=== PATIENT | female | born 1945 | race Caucasian/White ===

== ENCOUNTER 2017-08-13 00:18 | Inpatient (IN) | payer MEDICARE ==
[2017-08-13 01:33] LABS: Bacteria,Urine 1+ /HPF (Negative); Bilirubin,Urine NEG (Negative); Blood,Urine SM (Negative); Color,Urine Yellow (Yellow); Mucus,Urine FEW /HPF; Nitrite,Urine NEG (Negative); Protein,Urine <15 mg/dL mg/dL (Negative)
[2017-08-13 01:38] LABS: Basophils % (Auto) 0.4 % (0.0-1.8); Eosinophils # (Auto) 0.2 K/mm3 (0.0-0.4); Eosinophils % (Auto) 2.1 % (0.0-4.3); Hematocrit 39.9 % (30.3-42.9); Hemoglobin 12.4 gm/dl (10.1-14.3); Lymphocytes # (Auto) 0.4 K/mm3 (1.2-5.4); Lymphocytes % (Auto) 5.1 % (13.4-35.0); Mean Corpuscular HGB Conc 31 % (30-34); Mean Corpuscular Volume 75 fl (79-97); Monocytes # (Auto) 0.7 K/mm3 (0.0-0.8); Monocytes % (Auto) 9.1 % (0.0-7.3); Platelet Count 230 K/mm3 (140-440); Red Blood Count 5.31 M/mm3 (3.65-5.03); Red Cell Distribution Width 16.3 % (13.2-15.2)
[2017-08-13 01:39] LABS: Mean Corpuscular Hemoglobin 23 pg (28-32)
[2017-08-13] MEDS ORDERED: NACL 0.9% 1000 ML 1,000 ML ONE (01:42)
[2017-08-13] MEDS ORDERED: TORADOL IV ONE (01:47)
[2017-08-13] MEDS ORDERED: ZOFRAN IV ONE (01:47)
[2017-08-13] MEDS ORDERED: MORPHINE IV ONE (01:47)
[2017-08-13 01:48] LABS: BUN/Creatinine Ratio 23; Blood Urea Nitrogen 14 mg/dL (7-17); Calcium 8.4 mg/dL (8.4-10.2); Hemolysis Index 4
[2017-08-13] MEDS ORDERED: NACL 0.9% 1000 ML 1,000 ML IV ONE ×2 (01:48→08:04)
--- NOTE | 2017-08-13 02:08 | Emergency Department Report ---
ED N/V/D HPI - General Chief complaint: Nausea/Vomiting/Diarrhea Stated complaint: ABDOMINAL PAIN,N/V/D Time Seen by Provider: 08/13/17 01:35 Source: patient Mode of arrival: Ambulatory Limitations: No Limitations - History of Present Illness MD complaint: nausea, vomiting (2 episodes), diarrhea (2 episodes), abdominal pain -: Sudden Description of Vomiting: food contents Associated Abdominal Pain: Yes Location: LLQ Radiation: none Severity: severe Quality: cramping, aching, constant Consistency: constant Improves with: none Worsens with: movement, other (PALPATION) Associated Symptoms: nausea/vomiting. denies: fever/chills - Related Data Home Medications Medication Instructions Recorded Confirmed Last Taken Lantus 35 units SQ HS 08/13/17 08/13/17 Unknown Victoza 2-Tremaine 0.12 units SQ DAILY 08/13/17 08/13/17 Unknown Allergies Allergy/AdvReac Type Severity Reaction Status Date / Time meperidine [From Demerol] AdvReac Dizziness Verified 08/13/17 00:36 ED Review of Systems ROS: Stated complaint: ABDOMINAL PAIN,N/V/D Other details as noted in HPI ED Past Medical Hx - Past Medical History Previous Medical History?: Yes Hx Diabetes: Yes - Surgical History Past Surgical History?: No - Social History Smoking Status: Never Smoker Substance Use Type: None - Medications Home Medications: Home Medications Medication Instructions Recorded Confirmed Last Taken Type Lantus 35 units SQ HS 08/13/17 08/13/17 Unknown History Victoza 2-Tremaine 0.12 units SQ DAILY 08/13/17 08/13/17 Unknown History ED Physical Exam - General Limitations: No Limitations General appearance: alert, in distress (SECONDARY TO ABDOMINAL PAIN) - Head Head exam: Present: atraumatic, normocephalic - Eye Eye exam: Present: normal appearance, EOMI - ENT ENT exam: Present: normal exam, mucous membranes moist - Neck Neck exam: Present: normal inspection, full ROM - Respiratory Respiratory exam: Present: normal lung sounds bilaterally. Absent: respiratory distress - Cardiovascular Cardiovascular Exam: Present: normal rhythm, tachycardia - GI/Abdominal GI/Abdominal exam: Present: soft, tenderness (LEFT LOWER QUADRANT) - Rectal Rectal exam: Present: deferred - Extremities Exam Extremities exam: Present: normal inspection, full ROM - Back Exam Back exam: Present: normal inspection, full ROM - Neurological Exam Neurological exam: Present: alert, oriented X3 - Psychiatric Psychiatric exam: Present: normal affect, normal mood - Skin Skin exam: Present: warm, dry, intact, normal color ED Course Vital Signs 08/13/17 08/13/17 08/13/17 00:26 01:34 01:35 Temperature 98.8 F Pulse Rate 133 H 123 H 125 H Respiratory 18 20 23 Rate Blood Pressure 151/84 147/69 O2 Sat by Pulse 100 Oximetry 08/13/17 08/13/17 08/13/17 01:41 01:45 01:51 Temperature Pulse Rate 124 H 123 H 125 H Respiratory 12 16 17 Rate Blood Pressure 147/69 147/69 147/69 O2 Sat by Pulse Oximetry 08/13/17 08/13/17 08/13/17 01:55 01:56 02:00 Temperature Pulse Rate 126 H 124 H Respiratory 19 16 14 Rate Blood Pressure 147/69 121/61 O2 Sat by Pulse Oximetry 08/13/17 08/13/17 08/13/17 02:05 02:11 02:15 Temperature Pulse Rate 122 H 121 H 121 H Respiratory 15 19 19 Rate Blood Pressure 121/61 121/61 121/61 O2 Sat by Pulse Oximetry 08/13/17 02:20 Temperature Pulse Rate Respiratory 16 Rate Blood Pressure O2 Sat by Pulse Oximetry - Reevaluation(s) Reevaluation #1: 08/13/17 05:24 PT IS STILL TACHYCARDIA AND I AM STILL WAITING ON CTA OF [place] CT OF ABDOMEN/ PELVIS. PT WAS SLEEPING WHEN I WENT IN. 08/13/17 05:24 ED Medical Decision Making - Lab Data Result diagrams: 08/13/17 00:56 08/13/17 00:56 - EKG Data EKG shows normal: sinus rhythm, axis, QRS complexes, ST-T waves Rate: tachycardia - Radiology Data Radiology results: report reviewed (CTA CHEST;NEGATIVE CT ABD/PELVIS: DIVERTICULOSIS,DISTENDED GALLBLADDER WITH MILD PERICHOLECYSTIC EDEMA, NO GALL STONES) Critical care attestation.: If time is entered above; I have spent that time in minutes in the direct care of this critically ill patient, excluding procedure time. ED Disposition Clinical Impression: Cholecystitis, Hyperglycemia due to type 2 diabetes mellitus Diverticulitis large intestine Qualifiers: Diverticulitis bleeding: without bleeding Diverticulitis complication: without perforation or abscess Qualified Code(s): K57.32 - Diverticulitis of large intestine without perforation or abscess without bleeding Abdominal pain Qualifiers: Abdominal location: left lower quadrant Qualified Code(s): R10.32 - Left lower quadrant pain Disposition: OP ADMIT IP TO THIS HOSP Is pt being admited?: Yes Does the pt Need Aspirin: No Instructions: Diabetes Mellitus Type 2 in Adults (ED) Referrals: VASYL CHENG MD [Primary Care Provider] - 3-5 Days Time of Disposition: 08:09 (DR BRODY PAGED AND CASE REVIEWED ANDHE WILL ADMIT THE PT TO THE HOSPITAL)
[2017-08-13 02:40] LABS: Alanine Aminotransferase 11 units/L (7-56); Albumin 2.9 g/dL (3.9-5)
[2017-08-13 02:43] LABS: Bilirubin,Direct < 0.2 mg/dL (0-0.2)
[2017-08-13] MEDS ORDERED: NACL ONE (04:54)
--- NOTE | 2017-08-13 06:43 | Cat Scan Report ---
FINAL REPORT EXAM: CT ANGIO CHEST HISTORY: chest pain,abd pain,sob,recent travel TECHNIQUE: CT imaging obtained through the chest in pulmonary angiographic phase following intravenous administration of contrast. Transaxial, Coronal and sagittal reformats with maximal intensity projections are provided. PRIORS: None. FINDINGS: Normal caliber main pulmonary artery. No central or segmental pulmonary embolism. Opacification of the pulmonary arterial tree is insufficient for more detailed evaluation of pulmonary embolism. No pericardial effusion. Mild cardiomegaly. Thoracic aorta is normal in course and caliber. No periaortic fluid or stranding. No pneumothorax, effusion or focal airspace disease. Bibasilar atelectasis/scarring. The central airways are patent. No bronchiectasis. Please see CT abdomen and pelvis of the same date. The superficial soft tissues are unremarkable. No acute bony abnormality or worrisome osseous lesions identified. IMPRESSION: No central or segmental pulmonary embolism or other acute finding. Please see CT abdomen and pelvis of the same date.
--- NOTE | 2017-08-13 06:50 | Cat Scan Report ---
FINAL REPORT EXAM: CT ABDOMEN PELVIS W CON HISTORY: chest pain,abd pain,sob,recent travel TECHNIQUE: CT images are acquired through the Abdomen and Pelvis arterial and delayed phases following intravenous administration of contrast. Transaxial, coronal and sagittal reformations are provided. PRIORS: None FINDINGS: Please see CT chest of the same date. Gallbladder is distended. No calcified cholelithiasis. Mild pericholecystic edema. The liver, pancreas, spleen, and adrenal glands are unremarkable. Kidneys show no worrisome lesions, hydronephrosis, or calculi. Urinary bladder is unremarkable. Small and large bowel are normal in caliber. Sigmoid diverticulosis without surrounding inflammatory findings. Appendix is normal. No free air, free fluid, or lymphadenopathy identified. Aorta is normal in course and caliber. Superficial soft tissues are unremarkable. No acute or aggressive appearing skeletal findings. IMPRESSION: Distended gallbladder with mild pericholecystic edema may be due to cholecystitis in the proper clinical setting. No calcified gallstones are present. Consider follow-up ultrasound as warranted.
[2017-08-13] MEDS ORDERED: D50W (25GM) Syringe IV PRN (08:28)
[2017-08-13] MEDS ORDERED: NACL 0.9% 1000 ML 1,000 ML IV SCH (09:00)
[2017-08-13] MEDS ORDERED: FLAGYL 500 MG/100 ML 500 MG/100 ML BAG IV SCH (09:00)
--- NOTE | 2017-08-13 09:06 | Ultrasound Report ---
FINAL REPORT EXAM: US ABDOMEN LIMITED HISTORY: ABDOMINAL PAIN COMPARISONS: CT abdomen and pelvis 08/13/2017 FINDINGS: Grayscale and color Doppler ultrasound evaluation of the right upper abdomen Liver is normal in size and contour. Hepatic parenchymal echogenicity is within normal limits. No parenchymal lesion identified. No intra or extrahepatic biliary ductal dilatation. The common duct measures approximately 6 millimeters in caliber. The gallbladder is full of echogenic shadowing gallstones. Mild suggested pericholecystic edema. Gallbladder wall thickness is approximately 3 millimeters. The pancreas is not well seen secondary to overlying bowel gas. Imaged portion of the abdominal aorta and inferior vena cava are unremarkable. No abdominal ascites or free fluid in Espinoza's pouch. The right kidney measures up to 9.2 cm in length and is without hydronephrosis or echogenic shadowing foci to suggest nephrolithiasis. IMPRESSION: Cholelithiasis with mild gallbladder wall thickening and suggested pericholecystic edema are consistent with acute cholecystitis. If patient's clinical picture is equivocal, consider nuclear medicine hepatobiliary scan for more specific evaluation.
[2017-08-13 09:19] LABS: Bilirubin,Urine NEG (Negative); Blood,Urine SM (Negative); Color,Urine Straw (Yellow); Mucus,Urine FEW /HPF; Nitrite,Urine NEG (Negative); Protein,Urine <15 mg/dL mg/dL (Negative); Urobilinogen,Urine < 2.0 mg/dL (<2.0)
[2017-08-13] MEDS ORDERED: FLUSH HEPARIN IV ONE (10:31)
[2017-08-13] MEDS ORDERED: HEPARIN ONE (10:31)
[2017-08-13] MEDS: NOVOLOG SUB-Q SCH ×3 (11:00→17:11)
[2017-08-13] MEDS ORDERED: NOVOLOG SUB-Q ONE ×2 (11:19→13:34)
[2017-08-13] MEDS: ZOSYN/NS 4.5GM/100ML 4.5 GM/100 ML VIAL IV SCH ×3 (11:46→22:23)
[2017-08-13] MEDS: MORPHINE IV PRN ×2 (11:47→22:31)
--- NOTE | 2017-08-13 13:09 | History and Physical Report ---
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 She had diarrhea earlier. She is scheduled to go back to [place] 08/16/2017. Past medical history: As HPI Past surgical history: Denies Social history: Nonsmoker, no alcohol abuse or illegal drug use Family history: Diabetes ROS:Constitutional: no weight loss, no weight gain, no chills, no sweats, no fatigue, positive weakness, no poor appetite Ears, nose, mouth and throat: no deferred, no ear pain, no decreased hearing, no sinus pressure, no bleeding gums, no dental pain, no mouth pain, no hoarseness, no sore throat, no swelling in mouth, no post-nasal drip, no headache, no vertigo, no pain front of neck, no neck lump Cardiovascular: chest pain, lightheadedness, decreased exercise tolerance, no orthopnea, no palpitations, no rapid/irregular heart beat, no edema, no syncope , no shortness of breath, no dyspnea on exertion, no paroxysmal nocturnal dyspnea, no claudication, no phlebitis, no high blood pressure, no leg edema Respiratory: no cough with sputum, no excessive sputum, no hemoptysis, no pleurisy, no pain, no pain on inspiration, no respiratory infections, no other Gastrointestinal: As HPI Genitourinary Male: no flank pain, no discharge, no urinary hesitancy, no nocturia Rectal: no incontinence, no bleeding, no itching, no discharge Musculoskeletal: no neck stiffness, no shooting arm pain, no arm numbness/ tingling, no shooting leg pain, no leg numbness/tingling, no atrophy, no limitation of motion, no fractures, no loss of height, no prior amputations, no arthritis Integumentary: no depigmentation, no dryness, no unusual bruising Neurological: Headache Psychiatric: hypersomnia, change in libido, irritability, no anxiety, no memory loss, no sleep disturbances, no change in appetite, no disorientation, no hallucinations, no paranoia, no hopelessness, no anxiety attacks, no confusion Endocrine: Patient is diabetic Hematologic/Lymphatic: no easy bruising, no lymphedema Allergic/Immunologic: no urticaria, no allergic rhinitis, no anaphylaxis Medications and Allergies Allergies Allergy/AdvReac Type Severity Reaction Status Date / Time meperidine [From Demerol] AdvReac Dizziness Verified 08/13/17 00:36 Home Medications Medication Instructions Recorded Confirmed Last Taken Type Lantus 35 units SQ HS 08/13/17 08/13/17 Unknown History Victoza 2-Tremaine 0.12 units SQ DAILY 08/13/17 08/13/17 Unknown History Active Meds: Active Medications Dextrose (D50w (25gm) Syringe) 50 ml IV PRN PRN PRN Reason: Hypoglycemia Heparin Sodium (Porcine) (Heparin) 5,000 unit SUB-Q Q12HR SADIQ Metronidazole (Flagyl 500 Mg/100 Ml) 500 mg in 100 mls @ 200 mls/hr IV ONCE SADIQ Last Admin: 08/13/17 11:58 Dose: 200 mls/hr Piperacillin Sod/Tazobactam Sod (Zosyn/Ns 4.5gm/100ml) 4.5 gm in 100 mls @ 200 mls/hr IV Q8HR SADIQ PRN Reason: Protocol Last Admin: 08/13/17 11:46 Dose: 200 mls/hr Sodium Chloride (Nacl 0.9% 1000 Ml) 1,000 mls @ 100 mls/hr IV DIRECT SADIQ Insulin Aspart (Novolog) 0 units SUB-Q Q6HR SADIQ PRN Reason: Protocol Last Admin: 08/13/17 11:00 Dose: 6 units Morphine Sulfate (Morphine) 2 mg IV Q4H PRN PRN Reason: Pain , Severe (7-10) Last Admin: 08/13/17 11:47 Dose: 2 mg Ondansetron HCl (Zofran) 4 mg IV Q4H PRN PRN Reason: Nausea And Vomiting Exam - Physical Exam Narrative exam: GEN: WDWN, NAD, AWAKE, ALERT, ORIENTATED 3 HEENT: NCAT, EOMI, PERRL, OP Clear NECK: supple, no adenopathy, no thyromegaly, no JVD CVS/HEART: RRR, NORMAL S1S2, NO JVD, pulses present bilaterally CHEST/LUNGS: CTA B, Symmetrical chest expansion, good air entry bilaterally GI/Abdomen: soft, positive Calvillo's sign, nondistended, left lower quadrant epigastric tenderness good bowel sounds, no guarding or rebound /Bladder: no suprapubic tenderness, no CVA or paraspinal tenderness EXT/Skin: no c/c/e, no obvious rash MSK: FROM x 4 Neuro: CN 2-12 grossly intact, no new focal deficits Psych: calm - Constitutional Vitals: Temp Pulse Resp BP Pulse Ox 98.3 F 85 16 115/70 100 08/13/17 11:43 08/13/17 11:43 08/13/17 02:20 08/13/17 11:43 08/13/17 00:26 Results - Labs CBC & Chem 7: 08/13/17 00:56 08/13/17 00:56 Labs: Abnormal lab results 08/13/17 08/13/17 08/13/17 Range/Units 00:37 00:56 00:56 RBC 5.31 H (3.65-5.03) M/mm3 MCV 75 L (79-97) fl MCH 23 L (28-32) pg RDW 16.3 H (13.2-15.2) % Lymph % (Auto) 5.1 L (13.4-35.0) % [place] % (Auto) 9.1 H (0.0-7.3) % Lymph # 0.4 L (1.2-5.4) K/mm3 Seg Neutrophils % 83.3 H (40.0-70.0) % D-Dimer (0-234) ng/mlDDU Sodium 136 L (137-145) mmol/L Creatinine 0.6 L (0.7-1.2) mg/dL Glucose 327 H (65-100) mg/dL POC Glucose 285 H (70-105) Albumin (3.9-5) g/dL Urine WBC (Auto) (0.0-6.0) /HPF 08/13/17 08/13/17 08/13/17 Range/Units 01:16 02:08 02:08 RBC (3.65-5.03) M/mm3 MCV (79-97) fl MCH (28-32) pg RDW (13.2-15.2) % Lymph % (Auto) (13.4-35.0) % [place] % (Auto) (0.0-7.3) % Lymph # (1.2-5.4) K/mm3 Seg Neutrophils % (40.0-70.0) % D-Dimer 279.13 H (0-234) ng/mlDDU Sodium (137-145) mmol/L Creatinine (0.7-1.2) mg/dL Glucose (65-100) mg/dL POC Glucose (70-105) Albumin 2.9 L (3.9-5) g/dL Urine WBC (Auto) 68.0 H (0.0-6.0) /HPF Assessment and Plan Patient is a 72-year-old [place] speaking woman visiting from [place] with a history of type 2 diabetes mellitus on insulin (Victoza and Lantus 35 units at bedtime) who presents with acute onset of severe constant nonradiating LLQ abd pains around 9pm last night associated with n/v without aggravating or relieving factors. She had diarrhea earlier. She is scheduled to go back to [place] 08/16/2017. CT abdomen and pelvis with IV contrast reported distended gallbladder with mild pericholecystic edema may be due to cholecystitis, no calcified gallbladder present CTA of the chest reported as no acute findings negative for PE Abdominal ultrasound reported as cholelithiasis with mild gallbladder wall thickening and suggested pericholecystic edema are consistent with acute cholecystitis, if patient's clinical picture is equivocal, consider nuclear medicine hepatobiliary scan for more specific evaluation -Acute cholecystitis with cholelithiasis: Treat with IV Zosyn, risk/nothing by mouth, IV pain medicine, IV fluids -Sepsis due to above as evident in the emergency physician's documentation of heart rate 125, respirations 23: Ordered blood cultures, IV fluids, antibiotics -Acute cystitis without hematuria: Check urine culture and treat with antibiotics -unControlled type 2 diabetes mellitus on insulin: Sliding scale every 6 hours because she is nothing by mouth -DVT prophylaxis: Subcutaneous heparin
[2017-08-13] MEDS ORDERED: ZOFRAN ONE (14:09)
[2017-08-13] MEDS: ZOFRAN IV PRN (15:22)
[2017-08-14] MEDS ORDERED: TYLENOL PO PRN (00:47)
[2017-08-14] MEDS: NOVOLOG SUB-Q SCH ×4 (00:54→20:12)
[2017-08-14] MEDS: ZOSYN/NS 4.5GM/100ML 4.5 GM/100 ML VIAL IV SCH ×2 (05:56→15:27)
[2017-08-14] MEDS: ZOFRAN IV PRN (08:31)
[2017-08-14] MEDS: HEPARIN SUB-Q SCH ×2 (09:28→22:16)
--- NOTE | 2017-08-14 10:10 | Progress Note ---
Assessment and Plan Assessment and plan: Patient is a 72-year-old Persian speaking woman visiting from [place] with a history of type 2 diabetes mellitus on insulin (Victoza and Lantus 35 units at bedtime) who presents with acute onset of severe constant nonradiating LLQ abd pains around 9pm last night associated with n/v without aggravating or relieving factors. She had diarrhea earlier. She is scheduled to go back to [place] 08/16/2017. CT abdomen and pelvis with IV contrast reported distended gallbladder with mild pericholecystic edema may be due to cholecystitis, no calcified gallbladder present CTA of the chest reported as no acute findings negative for PE Abdominal ultrasound reported as cholelithiasis with mild gallbladder wall thickening and suggested pericholecystic edema are consistent with acute cholecystitis, if patient's clinical picture is equivocal, consider nuclear medicine hepatobiliary scan for more specific evaluation -Acute cholecystitis with cholelithiasis: Treat with IV Zosyn, risk/nothing by mouth, IV pain medicine, IV fluids -Sepsis due to above as evident in the emergency physician's documentation of heart rate 125, respirations 23: Ordered blood cultures, IV fluids, antibiotics -Acute cystitis without hematuria: Check urine culture and treat with antibiotics -unControlled type 2 diabetes mellitus on insulin: Sliding scale every 6 hours because she is nothing by mouth -DVT prophylaxis: Subcutaneous heparin 08/14/17: Consulted and d/w Surgery Dr. 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 Follow-up on current diagnosis. Overnight uneventful. Patient denies any chest pain, shortness breath, severe headaches. Imaging, nursing note, chart, labs and old chart reviewed. Discussed with patient. Still with abd pain, nausea, coughing up yellow hernan phlegm. Hospitalist Physical - Physical exam Narrative exam: GEN: WDWN, NAD, AWAKE, ALERT, ORIENTATED 3 HEENT: NCAT, EOMI, PERRL, OP Clear NECK: supple, no adenopathy, no thyromegaly, no JVD CVS/HEART: RRR, NORMAL S1S2, NO JVD, pulses present bilaterally CHEST/LUNGS: CTA B, Symmetrical chest expansion, good air entry bilaterally GI/Abdomen: soft, positive Calvillo's sign, nondistended, left lower quadrant epigastric tenderness good bowel sounds, no guarding or rebound /Bladder: no suprapubic tenderness, no CVA or paraspinal tenderness EXT/Skin: no c/c/e, no obvious rash MSK: FROM x 4 Neuro: CN 2-12 grossly intact, no new focal deficits Psych: calm - Constitutional Vitals: Temp Pulse Resp BP Pulse Ox 98.1 F 91 H 18 114/58 94 08/14/17 08:03 08/14/17 08:03 08/14/17 08:03 08/14/17 08:03 08/14/17 08:03 Results - Labs CBC & Chem 7: 08/13/17 00:56 08/13/17 00:56 Labs: Laboratory Last Values WBC 7.4 K/mm3 (4.5-11.0) 08/13/17 00:56 RBC 5.31 M/mm3 (3.65-5.03) H 08/13/17 00:56 Hgb 12.4 gm/dl (10.1-14.3) 08/13/17 00:56 Hct 39.9 % (30.3-42.9) 08/13/17 00:56 MCV 75 fl (79-97) L 08/13/17 00:56 MCH 23 pg (28-32) L 08/13/17 00:56 MCHC 31 % (30-34) 08/13/17 00:56 RDW 16.3 % (13.2-15.2) H 08/13/17 00:56 Plt Count 230 K/mm3 (140-440) 08/13/17 00:56 Lymph % (Auto) 5.1 % (13.4-35.0) L 08/13/17 00:56 [place] % (Auto) 9.1 % (0.0-7.3) H 08/13/17 00:56 Eos % (Auto) 2.1 % (0.0-4.3) 08/13/17 00:56 Baso % (Auto) 0.4 % (0.0-1.8) 08/13/17 00:56 Lymph # 0.4 K/mm3 (1.2-5.4) L 08/13/17 00:56 [place] # 0.7 K/mm3 (0.0-0.8) 08/13/17 00:56 Eos # 0.2 K/mm3 (0.0-0.4) 08/13/17 00:56 Baso # 0.0 K/mm3 (0.0-0.1) 08/13/17 00:56 Seg Neutrophils % 83.3 % (40.0-70.0) H 08/13/17 00:56 Seg Neutrophils # 6.2 K/mm3 (1.8-7.7) 08/13/17 00:56 D-Dimer 279.13 ng/mlDDU (0-234) H 08/13/17 02:08 VBG pH 7.390 (7.320-7.420) 08/13/17 00:56 Sodium 136 mmol/L (137-145) L 08/13/17 00:56 Potassium 4.2 mmol/L (3.6-5.0) 08/13/17 00:56 Chloride 99.4 mmol/L (98-107) 08/13/17 00:56 Carbon Dioxide 24 mmol/L (22-30) 08/13/17 00:56 Anion Gap 17 mmol/L 08/13/17 00:56 BUN 14 mg/dL (7-17) 08/13/17 00:56 Creatinine 0.6 mg/dL (0.7-1.2) L 08/13/17 00:56 Estimated GFR > 60 ml/min 08/13/17 00:56 BUN/Creatinine Ratio 23 % 08/13/17 00:56 Glucose 327 mg/dL (65-100) H 08/13/17 00:56 POC Glucose 125 (70-105) H 08/14/17 06:51 Calcium 8.4 mg/dL (8.4-10.2) 08/13/17 00:56 Total Bilirubin 0.40 mg/dL (0.1-1.2) 08/13/17 02:08 Direct Bilirubin < 0.2 mg/dL (0-0.2) 08/13/17 02:08 Indirect Bilirubin 0.2 mg/dL 08/13/17 02:08 AST 14 units/L (5-40) 08/13/17 02:08 ALT 11 units/L (7-56) 08/13/17 02:08 Alkaline Phosphatase 83 units/L (35-129) 08/13/17 02:08 Total Protein 6.6 g/dL (6.3-8.2) 08/13/17 02:08 Albumin 2.9 g/dL (3.9-5) L 08/13/17 02:08 Albumin/Globulin Ratio 0.8 % 08/13/17 02:08 Urine Color Straw (Yellow) 08/13/17 08:57 Urine Turbidity Clear (Clear) 08/13/17 08:57 Urine pH 6.0 (5.0-7.0) 08/13/17 08:57 Ur Specific [place] 1.021 (1.003-1.030) 08/13/17 01:16 Urine Protein <15 mg/dl mg/dL (Negative) 08/13/17 08:57 Urine Glucose (UA) >=500 mg/dL (Negative) 08/13/17 08:57 Urine Ketones Neg mg/dL (Negative) 08/13/17 08:57 Urine Blood Sm (Negative) 08/13/17 08:57 Urine Nitrite Neg (Negative) 08/13/17 08:57 Urine Bilirubin Neg (Negative) 08/13/17 08:57 Urine Urobilinogen < 2.0 mg/dL (<2.0) 08/13/17 08:57 Ur Leukocyte Esterase Sm (Negative) 08/13/17 08:57 Urine WBC (Auto) 3.0 /HPF (0.0-6.0) 08/13/17 08:57 Urine RBC (Auto) 3.0 /HPF (0.0-6.0) 08/13/17 08:57 U Epithel Cells (Auto) 1.0 /HPF (0-13.0) 08/13/17 08:57 Urine Bacteria (Auto) 1+ /HPF (Negative) 08/13/17 01:16 Urine Mucus Few /HPF 08/13/17 08:57
[2017-08-14] MEDS: MORPHINE IV PRN ×3 (10:22→19:25)
--- NOTE | 2017-08-14 12:34 | Consultation ---
History of Present Illness Consult date: 08/14/17 Chief complaint: Abdominal pain, nausea, vomiting, diarrhea - History of present illness History of present illness: 72-year-old female with past medical history of diabetes, hepatitis C presents to the hospital one day ago with complaints of epigastric to right upper quadrant abdominal pain, severe, ongoing for 1 day. This is associated with nonbloody, nonbilious emesis, nausea, diarrhea. She also admits to subjective fevers and chills. The patient recently came here from [place] to visit her [id number] and supposed to be returning in 2 days. She denies any prior history of abdominal pain or symptoms like this. She denies any sick contacts. No chest pain, shortness of breath. Past History Past Medical History: diabetes, hepatitis Past Surgical History: , hysterectomy, total knee replacement Social history: . denies: smoking, alcohol abuse, prescription drug abuse, IV drug use Family history: no significant family history Medications and Allergies Allergies Allergy/AdvReac Type Severity Reaction Status Date / Time meperidine [From Demerol] AdvReac Dizziness Verified 08/13/17 00:36 Home Medications Medication Instructions Recorded Confirmed Last Taken Type Lantus 35 units SQ HS 08/13/17 08/13/17 Unknown History Victoza 2-Tremaine 0.12 units SQ DAILY 08/13/17 08/13/17 Unknown History Active Meds: Active Medications Acetaminophen (Tylenol) 650 mg PO Q4H PRN PRN Reason: Pain, Mild (1-3) Last Admin: 08/14/17 00:54 Dose: 650 mg Dextrose (D50w (25gm) Syringe) 50 ml IV PRN PRN PRN Reason: Hypoglycemia Heparin Sodium (Porcine) (Heparin) 5,000 unit SUB-Q Q12HR SADIQ Last Admin: 08/14/17 09:28 Dose: 5,000 unit Metronidazole (Flagyl 500 Mg/100 Ml) 500 mg in 100 mls @ 200 mls/hr IV ONCE SADIQ Last Admin: 08/13/17 11:58 Dose: 200 mls/hr Piperacillin Sod/Tazobactam Sod (Zosyn/Ns 4.5gm/100ml) 4.5 gm in 100 mls @ 200 mls/hr IV Q8HR SADIQ PRN Reason: Protocol Last Admin: 08/14/17 05:56 Dose: 200 mls/hr Sodium Chloride (Nacl 0.9% 1000 Ml) 1,000 mls @ 100 mls/hr IV DIRECT SADIQ Last Admin: 08/14/17 05:55 Dose: 100 mls/hr Insulin Aspart (Novolog) 0 units SUB-Q Q6HR SADIQ PRN Reason: Protocol Last Admin: 08/14/17 06:54 Dose: Not Given Morphine Sulfate (Morphine) 2 mg IV Q4H PRN PRN Reason: Pain , Severe (7-10) Last Admin: 08/14/17 10:22 Dose: 2 mg Ondansetron HCl (Zofran) 4 mg IV Q4H PRN PRN Reason: Nausea And Vomiting Last Admin: 08/14/17 08:31 Dose: 4 mg Review of Systems All systems: negative (see hpi) Exam Vital Signs Temp Pulse Resp BP Pulse Ox 98.8 F 133 H 18 151/84 100 08/13/17 00:26 08/13/17 00:26 08/13/17 00:26 08/13/17 00:26 08/13/17 00:26 Narrative exam: General: Awake, alert, oriented 3. No apparent distress CV: S1, S2 present Resp: No audible wheezes Abdomen: Soft, nondistended, positive tenderness to palpation in the right upper quadrant. No rebound, rigidity, guarding. There is a well-healed lower midline abdominal scar Extremities: No clubbing, cyanosis, edema Results - Labs 08/13/17 00:56 08/13/17 00:56 Abnormal lab results 08/13/17 08/13/17 08/14/17 Range/Units 10:54 13:33 00:21 POC Glucose 284 H 232 H 210 H (70-105) 08/14/17 08/14/17 Range/Units 06:51 12:16 POC Glucose 125 H 233 H (70-105) - Imaging CT scan - abdomen: report reviewed, image reviewed CT scan - pelvis: report reviewed, image reviewed US - abdomen: report reviewed, image reviewed Assessment and Plan 72-year-old female with acute cholecystitis 1. Nothing by mouth 2. IV fluids 3. Pain and nausea control when necessary 4. IV antibiotics- on Zosyn 5. DVT prophylaxis 6. OR today for laparoscopic cholecystectomy, possible open. All risks and benefits of surgery were discussed with the patient and her family at the bedside, all questions were answered, consent was signed and placed on the chart.
[2017-08-14] MEDS ORDERED: DIPRIVAN 10 MG/ML IV ONE (14:20)
[2017-08-14] MEDS ORDERED: XYLOCAINE MPF 2% ONE (14:20)
[2017-08-14] MEDS ORDERED: SUBLIMAZE ONE (14:20)
[2017-08-14] MEDS ORDERED: ZEMURON IV ONE (14:20)
--- NOTE | 2017-08-14 14:36 | Anesthesia Consultation ---
Anesthesia Consult and Med Hx Date of service: 08/14/17 - Airway Anesthetic Teeth Evaluation: Good ROM Head & Neck: Adequate Mental/Hyoid Distance: Adequate Mallampati Class: Class I Intubation Access Assessment: Good - Pulmonary Exam CTA: Yes - Cardiac Exam Cardiac Exam: RRR - Pre-Operative Health Status ASA Pre-Surgery Classification: ASA2 Proposed Anesthetic Plan: General - Pulmonary Hx Smoking: No Hx Asthma: No COPD: No Hx Pneumonia: No - Cardiovascular System Hx Hypertension: No - Gastrointestinal Hx Gastroesophageal Reflux Disease: Yes - Endocrine Hx End Stage Renal Disease: No Hx Non-Insulin Dependent Diabetes: Yes - Additional Comments Anesthesia Medical History Comments: Hx of Post-Op Shivering
--- NOTE | 2017-08-14 14:37 | Anesthesia Day of Surgery ---
Anesthesia Day of Surgery - Day of Surgery Patient Examined: Yes Patient H&P Reviewed: Yes Patient is NPO: Yes
[2017-08-14] MEDS ORDERED: PEPCID IV NR (15:00)
[2017-08-14] MEDS ORDERED: VERSED IV SCH (15:00)
[2017-08-14] MEDS: NACL 0.9% 1000 ML 1,000 ML IV SCH (15:13)
[2017-08-14] MEDS ORDERED: MARCAINE 0.25% INFILTRATI ONE ×2 (17:23→17:25)
[2017-08-14] MEDS ORDERED: NEO SYNEPHRINE/NS Syringe(OR USE) IV ONE (17:24)
[2017-08-14] MEDS ORDERED: ROBINUL ONE (17:27)
[2017-08-14] MEDS ORDERED: NEOSTIGMINE ONE (17:27)
[2017-08-14] MEDS ORDERED: ZOFRAN ONE (17:30)
[2017-08-14] MEDS ORDERED: TORADOL ONE (17:52)
--- NOTE | 2017-08-14 18:29 | Operative Report ---
Operative Report Operative Report: Date of operation: 08/14/2017 preoperative Diagnosis: Acute cholecystitis Postoperative diagnosis: Acute cholecystitis Procedure performed: Laparoscopic cholecystectomy Surgeon:Brigid Lewis DO Anesthesia: Gen. endotracheal anesthesia Findings: Thickened gallbladder full of multiple large stones Specimen: Gallbladder Estimated blood loss: 5 mL Complications: None Disposition: Stable to PACU HPI an indication: Patient is a 72-year-old female visiting from [place] who had one day of right upper quadrant abdominal pain, nausea, vomiting, diarrhea. Her diarrhea resolved however her abdominal pain persisted. She was found to have gallbladder thickening and pericholecystic edema on CT of the abdomen and pelvis and this was confirmed on a right upper quadrant ultrasound which just showed cholelithiasis, and findings consistent with acute cholecystitis. IN benefits of a laparoscopic, possible open cholecystectomy were discussed with the patient and her family. Consent was signed and placed on chart. Procedure in detail: Patient was identified in the preoperative area, taken back to the operating room and placed on the operating table in supine position. After anesthesia was induced the abdomen was prepped and draped in usual sterile fashion and a timeout performed. Local anesthetic, 0.25 percent Marcaine was injected at all skin incision sites. A 5 mm supraumbilical incision was made using an 11 blade through which a Veress needle was placed. The Veress needle positioning was confirmed using the saline drop test and the abdomen was then insufflated to 15 mmHg. The Veress needle was then removed and a 5 mm Optiview trocar was placed through this incision. The abdomen was inspected and there was no underlying injury to any of the abdominal structures. The gallbladder was visualized and an additional 12 mm subxiphoid, and 2-5 mm right upper quadrant ports were placed all under direct visualization. The patient was placed in reverse Trendelenburg and tilted to the left and the gallbladder was grasped and lifted cephalad and above the liver. There were adhesions from the duodenum to the gallbladder which were taken down bluntly and very carefully. The gallbladder wall did appear thickened. The cystic duct and artery were then meticulously dissected using [place] dissector. The cystic plate was cleared of all peritoneum and tissue. The critical view was obtained and the cystic duct and artery were the only 2 structures entering the gallbladder. These were then clipped with 3 clips proximal on each structure and one distal. The cystic duct and artery were then transected between the clips. The gallbladder was taken off the liver bed using hook electrocautery and then placed into an Endo Catch bag. The gallbladder was removed from the abdomen via the 12 mm port and passed off the table as a specimen. The gallbladder fossa was then inspected and irrigated and there was no evidence of bleeding or bile leakage. The clips were identified and intact. The patient was laid back into neutral position and Morison's pouch was irrigated and the iirrigant returned clear. All ports were then removed under direct visualization and the abdomen desufflated. The 12 mm port fascia was closed using figure of 8, 0 Vicryl sutures. The skin incisions were all closed with 4-0 Monocryl subcuticular stitches and skin glue. The end of the case, all sponge, instrument, and sharp counts were correct 2. The patient was awoken from anesthesia, extubated and taken to PACU in stable condition.
[2017-08-14] MEDS: PERCOCET 5/325 PO PRN (22:16)
[2017-08-15] MEDS: NOVOLOG SUB-Q SCH ×3 (00:12→13:15)
[2017-08-15] MEDS: NACL 0.9% 1000 ML 1,000 ML IV SCH (03:48)
[2017-08-15] MEDS: HEPARIN SUB-Q SCH (11:27)
--- NOTE | 2017-08-15 11:35 | Progress Note ---
Assessment and Plan Assessment and plan: Patient is a 72-year-old Amharic speaking woman visiting from [place] with a history of type 2 diabetes mellitus on insulin (Victoza and Lantus 35 units at bedtime) who presents with acute onset of severe constant nonradiating LLQ abd pains around 9pm last night associated with n/v without aggravating or relieving factors. She had diarrhea earlier. She is scheduled to go back to [place] 08/16/2017. CT abdomen and pelvis with IV contrast reported distended gallbladder with mild pericholecystic edema may be due to cholecystitis, no calcified gallbladder present CTA of the chest reported as no acute findings negative for PE Abdominal ultrasound reported as cholelithiasis with mild gallbladder wall thickening and suggested pericholecystic edema are consistent with acute cholecystitis, if patient's clinical picture is equivocal, consider nuclear medicine hepatobiliary scan for more specific evaluation -Acute cholecystitis with cholelithiasis: Treat with IV Zosyn, risk/nothing by mouth, IV pain medicine, IV fluids -Sepsis due to above as evident in the emergency physician's documentation of heart rate 125, respirations 23: Ordered blood cultures, IV fluids, antibiotics -Acute cystitis without hematuria: Check urine culture and treat with antibiotics -unControlled type 2 diabetes mellitus on insulin: Sliding scale every 6 hours because she is nothing by mouth -DVT prophylaxis: Subcutaneous heparin 08/14/17: Consulted and d/w Surgery Dr. Lewis==>Date of operation: 08/14/2017 preoperative Diagnosis: Acute cholecystitis Postoperative diagnosis: Acute cholecystitis Procedure performed: Laparoscopic cholecystectomy Surgeon:Brigid Lewis, Anesthesia: Gen. endotracheal anesthesia Findings: Thickened gallbladder full of multiple large stones Specimen: Gallbladder Estimated blood loss: 5 mL Complications: None Disposition: Stable to PACU 08/15/2017: Doing well post-op, diet per Surgeon, ordered am labs. History Interval history: Daughter, Sandeep used as scanning tech Patient was seen and examined. Follow-up on current diagnosis. Overnight uneventful. Patient denies any chest pain, shortness breath, severe headaches. Imaging, nursing note, chart, labs and old chart reviewed. Discussed with patient. Still with abd pain, nausea, coughing up yellow hernan phlegm. Hospitalist Physical - Physical exam Narrative exam: GEN: WDWN, NAD, AWAKE, ALERT, ORIENTATED 3 HEENT: NCAT, EOMI, PERRL, OP Clear NECK: supple, no adenopathy, no thyromegaly, no JVD CVS/HEART: RRR, NORMAL S1S2, NO JVD, pulses present bilaterally CHEST/LUNGS: CTA B, Symmetrical chest expansion, good air entry bilaterally GI/Abdomen: soft, positive bowel sounds, no guarding or rebound /Bladder: no suprapubic tenderness, no CVA or paraspinal tenderness EXT/Skin: no c/c/e, no obvious rash MSK: FROM x 4 Neuro: CN 2-12 grossly intact, no new focal deficits Psych: calm - Constitutional Vitals: Temp Pulse Resp BP Pulse Ox 98.7 F 71 20 140/73 97 08/15/17 08:10 08/15/17 08:10 08/15/17 08:10 08/15/17 08:10 08/15/17 08:10 Results - Labs CBC & Chem 7: 08/13/17 00:56 08/13/17 00:56 Labs: Laboratory Last Values WBC 7.4 K/mm3 (4.5-11.0) 08/13/17 00:56 RBC 5.31 M/mm3 (3.65-5.03) H 08/13/17 00:56 Hgb 12.4 gm/dl (10.1-14.3) 08/13/17 00:56 Hct 39.9 % (30.3-42.9) 08/13/17 00:56 MCV 75 fl (79-97) L 08/13/17 00:56 MCH 23 pg (28-32) L 08/13/17 00:56 MCHC 31 % (30-34) 08/13/17 00:56 RDW 16.3 % (13.2-15.2) H 08/13/17 00:56 Plt Count 230 K/mm3 (140-440) 08/13/17 00:56 Lymph % (Auto) 5.1 % (13.4-35.0) L 08/13/17 00:56 [place] % (Auto) 9.1 % (0.0-7.3) H 08/13/17 00:56 Eos % (Auto) 2.1 % (0.0-4.3) 08/13/17 00:56 Baso % (Auto) 0.4 % (0.0-1.8) 08/13/17 00:56 Lymph # 0.4 K/mm3 (1.2-5.4) L 08/13/17 00:56 [place] # 0.7 K/mm3 (0.0-0.8) 08/13/17 00:56 Eos # 0.2 K/mm3 (0.0-0.4) 08/13/17 00:56 Baso # 0.0 K/mm3 (0.0-0.1) 08/13/17 00:56 Seg Neutrophils % 83.3 % (40.0-70.0) H 08/13/17 00:56 Seg Neutrophils # 6.2 K/mm3 (1.8-7.7) 08/13/17 00:56 D-Dimer 279.13 ng/mlDDU (0-234) H 08/13/17 02:08 VBG pH 7.390 (7.320-7.420) 08/13/17 00:56 Sodium 136 mmol/L (137-145) L 08/13/17 00:56 Potassium 4.2 mmol/L (3.6-5.0) 08/13/17 00:56 Chloride 99.4 mmol/L (98-107) 08/13/17 00:56 Carbon Dioxide 24 mmol/L (22-30) 08/13/17 00:56 Anion Gap 17 mmol/L 08/13/17 00:56 BUN 14 mg/dL (7-17) 08/13/17 00:56 Creatinine 0.6 mg/dL (0.7-1.2) L 08/13/17 00:56 Estimated GFR > 60 ml/min 08/13/17 00:56 BUN/Creatinine Ratio 23 % 08/13/17 00:56 Glucose 327 mg/dL (65-100) H 08/13/17 00:56 POC Glucose 177 (70-105) H 08/15/17 06:04 Calcium 8.4 mg/dL (8.4-10.2) 08/13/17 00:56 Total Bilirubin 0.40 mg/dL (0.1-1.2) 08/13/17 02:08 Direct Bilirubin < 0.2 mg/dL (0-0.2) 08/13/17 02:08 Indirect Bilirubin 0.2 mg/dL 08/13/17 02:08 AST 14 units/L (5-40) 08/13/17 02:08 ALT 11 units/L (7-56) 08/13/17 02:08 Alkaline Phosphatase 83 units/L (35-129) 08/13/17 02:08 Total Protein 6.6 g/dL (6.3-8.2) 08/13/17 02:08 Albumin 2.9 g/dL (3.9-5) L 08/13/17 02:08 Albumin/Globulin Ratio 0.8 % 08/13/17 02:08 Urine Color Straw (Yellow) 08/13/17 08:57 Urine Turbidity Clear (Clear) 08/13/17 08:57 Urine pH 6.0 (5.0-7.0) 08/13/17 08:57 Ur Specific [place] 1.021 (1.003-1.030) 08/13/17 01:16 Urine Protein <15 mg/dl mg/dL (Negative) 08/13/17 08:57 Urine Glucose (UA) >=500 mg/dL (Negative) 08/13/17 08:57 Urine Ketones Neg mg/dL (Negative) 08/13/17 08:57 Urine Blood Sm (Negative) 08/13/17 08:57 Urine Nitrite Neg (Negative) 08/13/17 08:57 Urine Bilirubin Neg (Negative) 08/13/17 08:57 Urine Urobilinogen < 2.0 mg/dL (<2.0) 08/13/17 08:57 Ur Leukocyte Esterase Sm (Negative) 08/13/17 08:57 Urine WBC (Auto) 3.0 /HPF (0.0-6.0) 08/13/17 08:57 Urine RBC (Auto) 3.0 /HPF (0.0-6.0) 08/13/17 08:57 U Epithel Cells (Auto) 1.0 /HPF (0-13.0) 08/13/17 08:57 Urine Bacteria (Auto) 1+ /HPF (Negative) 08/13/17 01:16 Urine Mucus Few /HPF 08/13/17 08:57
--- NOTE | 2017-08-15 12:06 | Progress Note ---
Assessment and Plan 72-year-old female with acute cholecystitis s/p laparoscopic cholecystectomy, POD 1 1. adv to carb controlled diet 2. dc IVF 3. dc abx 4. PO pain control 5. OOB/ambulate 6. no traveling for one week 7. d/w patient and her daughter 8. ok to id home after lunch, follow up in office prior to returning to [place] D/W Dr. Varela Subjective Date of service: 08/15/17 Narrative: Pt seen and examined. No complaints. No n/v, abd pain, diarrhea. Tolerated clear liquids. Objective Vital Signs - 12hr 08/15/17 08/15/17 03:53 08:10 Temperature 99.0 F 98.7 F Pulse Rate 81 71 Respiratory 16 20 Rate Blood Pressure 134/74 140/73 O2 Sat by Pulse 94 97 Oximetry - General physical appearance Narrative Exam: Gen: AAOx3. NAD CV: S1, S2+ Resp: No audible wheezes Abd: soft, NT, ND. incisions c/d/i Ext: no c/c/e - Labs 08/13/17 00:56 08/13/17 00:56
--- NOTE | 2017-08-15 12:09 | Discharge Summary ---
Providers - Providers Date of Admission: 08/13/17 08:20 Date of discharge: 08/15/17 Attending physician: TERESSA PHIPPS 08/14/17 09:18 Consult to Physician [CONS] Routine Consulting Provider: FIDENCIO VILLAGOMEZ Reason For Exam: acute cholecystitis Place consult to:: DR. VILLAGOMEZ Notified:: DR. VILLAGOMEZ Primary care physician: VASYL CHENG Hospitalization Condition: Stable Hospital course: Patient is a 72-year-old Estonian speaking woman visiting from [place] with a history of type 2 diabetes mellitus on insulin (Victoza and Lantus 35 units at bedtime) who presents with acute onset of severe constant nonradiating LLQ abd pains around 9pm last night associated with n/v without aggravating or relieving factors. She had diarrhea earlier. She is scheduled to go back to [place] 08/16/2017. CT abdomen and pelvis with IV contrast reported distended gallbladder with mild pericholecystic edema may be due to cholecystitis, no calcified gallbladder present CTA of the chest reported as no acute findings negative for PE Abdominal ultrasound reported as cholelithiasis with mild gallbladder wall thickening and suggested pericholecystic edema are consistent with acute cholecystitis, if patient's clinical picture is equivocal, consider nuclear medicine hepatobiliary scan for more specific evaluation -Acute cholecystitis with cholelithiasis: Treat with IV Zosyn, risk/nothing by mouth, IV pain medicine, IV fluids -Sepsis due to above as evident in the emergency physician's documentation of heart rate 125, respirations 23: Ordered blood cultures, IV fluids, antibiotics -Acute cystitis without hematuria: Check urine culture and treat with antibiotics -unControlled type 2 diabetes mellitus on insulin: Sliding scale every 6 hours because she is nothing by mouth -DVT prophylaxis: Subcutaneous heparin 08/14/17: Consulted and d/w Surgery Dr. Villagomez==>Date of operation: 08/14/2017 preoperative Diagnosis: Acute cholecystitis Postoperative diagnosis: Acute cholecystitis Procedure performed: Laparoscopic cholecystectomy Surgeon:Brigid Villagomez, Anesthesia: Gen. endotracheal anesthesia Findings: Thickened gallbladder full of multiple large stones Specimen: Gallbladder Estimated blood loss: 5 mL Complications: None Disposition: Stable to PACU 08/15/2017: Doing well post-op, diet per Surgeon, ordered am labs. per Dr. Villagomez: "72-year-old female with acute cholecystitis s/p laparoscopic cholecystectomy, POD 1 1. adv to carb controlled diet 2. dc IVF 3. dc abx 4. PO pain control 5. OOB/ambulate 6. no traveling for one week 7. d/w patient and her daughter 8. ok to nm home after lunch, follow up in office prior to returning to [place] D/W Dr. Phipps" Disposition: DC-01 TO HOME OR SELFCARE Time spent for discharge: 36 minutes Core Measure Documentation - Palliative Care Palliative Care/ Comfort Measures: Not Applicable - Core Measures Any of the following diagnoses?: none - VTE Discharge Requirements Deep Vein Thrombosis/Pulmonary Embolism Present on Admission: No Has pt received <5 days of overlap therapy or INR<2.0: No Anticoagulant overlap therapy prescribed at discharge: No Contraindication No Overlap Therapy order at DC: Not Indicated Exam - Physical Exam Narrative exam: GEN: WDWN, NAD, AWAKE, ALERT, ORIENTATED 3 HEENT: NCAT, EOMI, PERRL, OP Clear NECK: supple, no adenopathy, no thyromegaly, no JVD CVS/HEART: RRR, NORMAL S1S2, NO JVD, pulses present bilaterally CHEST/LUNGS: CTA B, Symmetrical chest expansion, good air entry bilaterally GI/Abdomen: soft, positive bowel sounds, no guarding or rebound /Bladder: no suprapubic tenderness, no CVA or paraspinal tenderness EXT/Skin: no c/c/e, no obvious rash MSK: FROM x 4 Neuro: CN 2-12 grossly intact, no new focal deficits Psych: calm - Constitutional Vitals: Temp Pulse Resp BP Pulse Ox 98.7 F 71 20 140/73 97 08/15/17 08:10 08/15/17 08:10 08/15/17 08:10 08/15/17 08:10 08/15/17 08:10 Plan Activity: other (1 week) Diet: clear liquids (advance as tolerates) Special Instructions: record blood sugar diary Additional Instructions: Take less lantus if not eating much Follow up with: VASYL CHENG MD [Primary Care Provider] - 3-5 Days FIDENCIO VILLAGOMEZ DO [Staff Physician] - 7 Days Prescriptions: Metoclopramide [Reglan ORAL LIQ] 10 mg PO Q8H PRN #5 day PRN Reason: Nausea oxyCODONE /ACETAMINOPHEN [Percocet 5/325 mg] 2 tab PO Q6H PRN #20 tablet PRN Reason: Pain, Moderate (4-6)
[2017-08-15 12:47] VITALS: BP 136/66
[2017-08-15] MEDS: PERCOCET 5/325 PO PRN (15:58)
--- NOTE | 2017-08-15 16:32 | Progress Note ---
Subjective Date of service: 08/15/17 ([facility], per pt.) Objective - Constitutional Vitals: Vital Signs - 12hr 08/15/17 08/15/17 08:10 12:42 Temperature 98.7 F 99.0 F Pulse Rate 71 74 Respiratory 20 16 Rate Blood Pressure 140/73 136/66 O2 Sat by Pulse 97 94 Oximetry - Labs CBC & Chem 7: 08/13/17 00:56 08/13/17 00:56 Labs: Abnormal lab results 08/14/17 08/14/17 08/15/17 Range/Units 18:42 23:39 06:04 POC Glucose 160 H 203 H 177 H (70-105) 08/15/17 Range/Units 11:58 POC Glucose 124 H (70-105)
--- NOTE | 2017-08-21 13:40 | Query- Nutrition ---
Dear ____Avery Date:____08/21/17 Learning Developer/CDS:____Jamie / David Phone#:___[phone] Exercise your independent professional judgment when responding to query. Questions asked do not imply a particular answer is desired or expected. We greatly appreciate your clarification on this issue. Clinical Documentation States: 72 year old female was admitted on 08/13/17 The discharge summary (Dr. Varela 08/15/17) states " presents with acute onset of severe constant nonradiating LLQ abd pains around 9pm last night associated with n/v Acute cholecystitis with cholelithiasis: Treat with IV Zosyn, risk/nothing by mouth, IV pain medicine, IV fluids " Clinical Findings Show: Albumin: 2.9 Please select the most appropriate option 3 [x] Mild Malnutrition [] Mild - Moderate Malnutrition [] Moderate - Severe Malnutrition [] Severe Malnutrition Serum Albumin 2.8 to 3.4 g/dl or Pre-albumin 5 to 17 mg/dl1,2 Inadequate nutritional intake1,2,3,4 NPO > 5 days Weight loss: 5% in 1 month or 7.5% in 3 months or 10% in 6 months1, 3,4 BMI 16 to 18.4 or Weight <90% of ideal body weight1,2,3,4 Serum Albumin < 2.8 g/ dl1,2 Lymphocytes < 1500/ L2 Inadequate nutritional intake3, high stress e.g. major trauma, sepsis,pancreatitis, acuña etc. Decubitus ulcers1,2, , skin breakdown2, easy hair pluckability2 Weight <80% standard for height2 Triceps skin fold <3 mm2 Mid-arm muscle circumference <15 cm2 Creatinine-height index <60% standard2 [ ] Cachexia [ ] Emaciated w/Malnutrition [ ] Other: [ ] Unable to determine [ ] Comment/Explanation: Present on Admission: [ x] Yes (Y) [ ] Clinically undeterminable (W) [ ] No (N) Please also document response in your Progress Notes and/or Discharge Summary and indicate if the condition was present on admission. MTDD
--- NOTE | 2017-08-27 10:22 | Query- Dyspnea ---
Franc Gaviria____Avery Date:___08/27/17 Handbag Parts Cutter/CDS: Theresa / David Phone#:____[phone] Exercise your independent professional judgment when responding to query. Questions asked do not imply a particular answer is desired or expected. We greatly appreciate your clarification on this issue. Clinical Documentation States: 72 year old female was admitted on 08/13/17 The discharge summary (Dr. Varela) states " who presents with acute onset of severe constant nonradiating LLQ abd pains -Acute cholecystitis with cholelithiasis -Sepsis due to above as evident in the emergency physician's documentation of heart rate 125, respirations 23: " Clinical Findings Show: O2 SAT: 90% O2 Flow rate: 10 L/min Please clarify if the patient had any of the following conditions based on the above clinical findings: [ x] Respiratory Failure [ x] Acute [ ] Acute on Chronic [ ] Chronic [ ] Respiratory failure due to trauma [ ] Acute Respiratory Distress Syndrome [ ] Other: [ ] Unable to determine [ ] Comment/Explanation: Present on Admission: [x ] Yes (Y) [ ] Clinically undeterminable (W) [ ] No (N) Please also document response in your Progress Notes and/or Discharge Summary and indicate if the condition was present on admission. EMERALD
== END 2017-08-15 18:00 | disposition home or self-care (01) | DRG 853 ==
LOC: ED 00:18 → 3A 08:20
PROVIDERS: ADMIT Internal Medicine; ATTEND Internal Medicine
PROC: 0FT44ZZ Resection of Gallbladder, Percutaneous Endoscopic Approach (ICD-10-PCS; principal; 2017-08-13)
DX: A41.9 Sepsis, unspecified organism (principal); J96.00 Acute respiratory failure, unspecified whether with hypoxia or hypercapnia; K80.00 Calculus of gallbladder with acute cholecystitis without obstruction; N30.00 Acute cystitis without hematuria; K57.32 Diverticulitis of large intestine without perforation or abscess without bleeding; E44.1 Mild protein-calorie malnutrition; E11.9 Type 2 diabetes mellitus without complications; E11.65 Type 2 diabetes mellitus with hyperglycemia; Z88.5 Allergy status to narcotic agent; Z79.4 Long term (current) use of insulin; Z90.710 Acquired absence of both cervix and uterus
CPT/HCPCS: 36415; 71275; 74177; 76705; 80048; 80074; 81001; 82805; 82962; 85025; 85379; 87040; 87086; 88304; 93005; 93010; 96374; 96375; 96376; J1642; J1644; J1815; J1885; J2250; J2270; J2370; J2405; J2543; J2704; J2710; J3010; J7030; Q9967